=== PATIENT | female | born 1955 | race American Indian/Alaskan Native ===

== ENCOUNTER 2019-01-12 16:02 | Outpatient (CLI) | payer BC ==
--- NOTE | 2019-01-12 16:37 | XRay Report ---
CHEST 2 VIEWS INDICATION / CLINICAL INFORMATION: ACUTE BACTERIAL BRONCHITIS. COMPARISON: None available. FINDINGS: SUPPORT DEVICES: None. HEART / MEDIASTINUM: No significant abnormality. LUNGS / PLEURA: No significant pulmonary or pleural abnormality. No pneumothorax. ADDITIONAL FINDINGS: No significant additional findings. IMPRESSION: 1. No acute findings. Signer Name: Tato Kam MD Signed: 01/12/2019 4:33 PM Workstation Name: [id number]
== END 2019-01-12 16:03 | disposition home or self-care (01) ==
LOC: SPVIMAG 16:02
PROVIDERS: ATTEND Internal Medicine
DX: J20.8 Acute bronchitis due to other specified organisms (principal)
CPT/HCPCS: 71046